=== PATIENT | male | born 1970 | race Caucasian/White ===

== ENCOUNTER 2020-06-27 14:06 | Outpatient (REF) | payer OTHER, SELFPAY ==
[2020-06-27 15:13] LABS: COVID-19 Test Negative (Negative)
== END 2020-06-27 14:07 | disposition home or self-care (01) ==
LOC: HO.LAB 14:06
PROVIDERS: Visit Provider Internal Medicine
DX: Z20.822 Contact with and (suspected) exposure to COVID-19 (principal)
CPT/HCPCS: 36415; 87635; C9803

== ENCOUNTER 2020-08-05 12:44 | Outpatient (REF) | payer OTHER, SELFPAY ==
[2020-08-05 13:22] LABS: Hematocrit 50.8 % (42-52); Hemoglobin 16.7 g/dl (14.0-18.0); Mean Corpuscular HGB Conc 32.9 g/dl (31.0-36.0); Mean Corpuscular Hemoglobin 29.2 pg (27.0-33.0); Mean Platelet Volume 10.4 fL (9.4-12.4); Platelet Count 257 X10*3/uL (160-400); Red Blood Count 5.71 X10*6/uL (4.60-5.80); Red Cell Distribution Width 11.7 % (11.0-16.0); White Blood Count 8.3 X10*3/uL (4.8-10.8)
[2020-08-05 13:56] LABS: Anion Gap 15 (12-20); Blood Urea Nitrogen 14 mg/dL (9-16); Calcium 9.7 mg/dL (8.4-10.2); Carbon Dioxide 25 mmol/L (22-29); Chloride 100 mmol/L (96-108); Cholesterol 211 mg/dL; Estimated Glomerular Filt Rate > 60; Glucose Fasting 288 mg/dL (60-99); HDL Cholesterol 43 mg/dL; Potassium 4.3 mmol/L (3.3-5.1); Sodium 136 mmol/L (135-145); Triglycerides 427 mg/dL
== END 2020-08-05 12:45 | disposition home or self-care (01) ==
LOC: HO.10HDL 12:44
PROVIDERS: Absent Provider Internal Medicine; Visit Provider Urology
DX: R79.89 Other specified abnormal findings of blood chemistry (principal)
CPT/HCPCS: 36415; 80048; 80061; 85027

== ENCOUNTER 2020-09-03 08:11 | Outpatient (REF) | payer OTHER, SELFPAY ==
[2020-09-03 10:54] LABS: Estimated Average Glucose 226 mg/dL; Hemoglobin A1c % 9.5 %
[2020-09-03 11:06] LABS: Alanine Aminotransferase 29 U/L (0-40); Alkaline Phosphatase 61 U/L (39-117); Aspartate Amino Transferase 24 U/L (5-37); Bilirubin Direct 0.3 mg/dL (0.0-0.5); Bilirubin Total 0.6 mg/dL (0.0-1.0); C Reactive Protein 0.29 mg/dL (< or = 0.50); Cholesterol 152 mg/dL; Glucose Fasting 101 mg/dL (60-99); HDL Cholesterol 42 mg/dL; LDL Cholesterol Calculated 86 mg/dl; Total Protein 6.8 g/dL (6.5-8.0); Triglycerides 123 mg/dL
[2020-09-03 12:04] LABS: Erythrocyte Sedimentation Rate 7 MM/HR (0-15)
[2020-09-04 06:42] LABS: Insulin Level Total 10.4 uIU/mL
== END 2020-09-03 08:12 | disposition home or self-care (01) ==
LOC: HO.10HDL 08:11
PROVIDERS: Visit Provider Urology
DX: E11.9 Type 2 diabetes mellitus without complications (principal)
CPT/HCPCS: 36415; 80061; 80076; 82947; 83036; 83525; 85652; 86140

== ENCOUNTER 2020-10-02 08:38 | Outpatient (REF) | payer OTHER, SELFPAY ==
[2020-10-02 10:46] LABS: Estimated Average Glucose 171 mg/dL; Hemoglobin A1c % 7.6 %
[2020-10-02 11:03] LABS: Alanine Aminotransferase 24 U/L (0-40); Albumin Level 4.2 g/dL (3.5-5.0); Alkaline Phosphatase 60 U/L (39-117); Anion Gap 13 (12-20); Aspartate Amino Transferase 19 U/L (5-37); Bilirubin Total 0.7 mg/dL (0.0-1.0); Blood Urea Nitrogen 14 mg/dL (9-16); Calcium 9.5 mg/dL (8.4-10.2); Carbon Dioxide 23 mmol/L (22-29); Chloride 107 mmol/L (96-108); Estimated Glomerular Filt Rate > 60; Glucose Fasting 112 mg/dL (60-99); Potassium 4.3 mmol/L (3.3-5.1); Sodium 139 mmol/L (135-145); Total Protein 7.2 g/dL (6.5-8.0)
[2020-10-02 11:09] LABS: Ferritin 289 ng/mL (20-250)
[2020-10-02 11:17] LABS: Vitamin B12 247 pg/mL (200-900)
[2020-10-02 13:31] LABS: Cholesterol 158 mg/dL; HDL Cholesterol 37 mg/dL; LDL Cholesterol Calculated 93 mg/dl; Triglycerides 143 mg/dL
[2020-10-04 05:56] LABS: Insulin Level Total 10.7 uIU/mL
[2020-10-07 12:52] LABS: Vitamin D 25-OH, D2 <4 ng/mL; Vitamin D 25-OH, D3 29 ng/mL; Vitamin D 25-OH, Total 29 ng/mL (30-100)
== END 2020-10-02 08:39 | disposition home or self-care (01) ==
LOC: HO.10HDL 08:38
PROVIDERS: Urology; Visit Provider Internal Medicine
DX: E11.9 Type 2 diabetes mellitus without complications (principal); R79.89 Other specified abnormal findings of blood chemistry
CPT/HCPCS: 36415; 80053; 80061; 82306; 82607; 82728; 83036; 83525

== ENCOUNTER 2020-10-05 18:54 | Outpatient (REF) | payer OTHER, SELFPAY ==
[2020-10-05 19:35] LABS: COVID-19 Test Negative (Negative); IDNOW Serial# 9DD0AD1C
== END 2020-10-05 18:55 | disposition home or self-care (01) ==
LOC: HO.LAB 18:54
PROVIDERS: Internal Medicine; PCP Internal Medicine; Visit Provider Internal Medicine
DX: Z20.822 Contact with and (suspected) exposure to COVID-19 (principal)
CPT/HCPCS: 36415; 87635

== ENCOUNTER 2020-11-06 07:53 | Outpatient (REF) | payer OTHER, SELFPAY ==
[2020-11-06 10:55] LABS: Alanine Aminotransferase 17 U/L (0-40); Albumin Level 4.2 g/dL (3.5-5.0); Alkaline Phosphatase 60 U/L (39-117); Anion Gap 13 (12-20); Aspartate Amino Transferase 16 U/L (5-37); Bilirubin Total 0.6 mg/dL (0.0-1.0); Blood Urea Nitrogen 18 mg/dL (9-16); Calcium 9.7 mg/dL (8.4-10.2); Carbon Dioxide 22 mmol/L (22-29); Chloride 107 mmol/L (96-108); Cholesterol 176 mg/dL; Estimated Glomerular Filt Rate > 60; Glucose Fasting 112 mg/dL (60-99); HDL Cholesterol 37 mg/dL; LDL Cholesterol Calculated 115 mg/dl; Potassium 4.4 mmol/L (3.3-5.1); Sodium 138 mmol/L (135-145); Triglycerides 123 mg/dL
[2020-11-06 11:18] LABS: Ferritin 270 ng/mL (20-250); Vitamin D 25-OH Total 38.1 ng/mL (>30)
[2020-11-06 11:38] LABS: Folate 11.3 ng/mL (> or = 4.0); Vitamin B12 354 pg/mL (200-900)
[2020-11-06 12:18] LABS: Estimated Average Glucose 128 mg/dL; Hemoglobin A1c % 6.1 %
[2020-11-07 09:12] LABS: Insulin Level Total 12.9 uIU/mL
[2020-11-07 15:56] LABS: C Peptide 3.43 ng/mL (0.80-3.85)
[2020-11-10 14:27] LABS: Glutamic acid decarboxylase Ab <5 IU/mL (<5)
== END 2020-11-06 07:54 | disposition home or self-care (01) ==
LOC: HO.10HDL 07:53
PROVIDERS: Urology; Visit Provider Internal Medicine
DX: E11.9 Type 2 diabetes mellitus without complications (principal); R79.89 Other specified abnormal findings of blood chemistry; E66.3 Overweight
CPT/HCPCS: 36415; 80053; 80061; 82306; 82607; 82728; 82746; 83036; 83525; 84681; 86341

== ENCOUNTER 2020-11-27 08:05 | Outpatient (REF) | payer OTHER, SELFPAY ==
[2020-11-27 10:09] LABS: Estimated Average Glucose 126 mg/dL
[2020-11-27 10:47] LABS: Alanine Aminotransferase 16 U/L (0-40); Albumin Level 4.1 g/dL (3.5-5.0); Alkaline Phosphatase 55 U/L (39-117); Aspartate Amino Transferase 16 U/L (5-37); Bilirubin Direct 0.2 mg/dL (0.0-0.5); Bilirubin Total 0.6 mg/dL (0.0-1.0); Cholesterol 187 mg/dL; Glucose Fasting 110 mg/dL (60-99); HDL Cholesterol 40 mg/dL; LDL Cholesterol Calculated 126 mg/dl; Total Protein 7.1 g/dL (6.5-8.0); Triglycerides 105 mg/dL
[2020-11-27 10:59] LABS: Ferritin 228 ng/mL (20-250)
[2020-11-29 14:46] LABS: C Peptide 2.76 ng/mL (0.80-3.85)
[2020-12-04 09:08] LABS: Insulin Level Total 9.9 uIU/mL
== END 2020-11-27 08:06 | disposition home or self-care (01) ==
LOC: HO.10HDL 08:05
PROVIDERS: Visit Provider Urology
DX: E11.9 Type 2 diabetes mellitus without complications (principal)
CPT/HCPCS: 36415; 80061; 80076; 82728; 82947; 83036; 83525; 84681

== ENCOUNTER 2020-12-26 08:33 | Outpatient (REF) | payer OTHER, SELFPAY ==
[2020-12-26 10:39] LABS: Cholesterol 170 mg/dL; Estimated Average Glucose 123 mg/dL; Glucose Fasting 106 mg/dL (60-99); HDL Cholesterol 36 mg/dL; Hemoglobin A1c % 5.9 %; LDL Cholesterol Calculated 109 mg/dl; Triglycerides 128 mg/dL
[2020-12-26 11:06] LABS: Ferritin 243 ng/mL (20-250)
[2020-12-28 08:11] LABS: C Peptide 2.63 ng/mL (0.80-3.85)
[2020-12-30 23:07] LABS: Beta-Hydroxybutyrate 0.16 mmol/L
== END 2020-12-26 08:34 | disposition home or self-care (01) ==
LOC: HO.10HDL 08:33
PROVIDERS: Visit Provider Urology
DX: E11.9 Type 2 diabetes mellitus without complications (principal)
CPT/HCPCS: 36415; 80061; 82010; 82728; 82947; 83036; 84681

== ENCOUNTER 2021-01-23 08:21 | Outpatient (REF) | payer OTHER, SELFPAY ==
[2021-01-23 10:25] LABS: Estimated Average Glucose 120 mg/dL; Hemoglobin A1C 148.9794 umol/L; Hemoglobin A1c % 5.8 %
[2021-01-23 10:45] LABS: Anion Gap 12 (12-20); Blood Urea Nitrogen 18 mg/dL (9-16); Calcium 8.8 mg/dL (8.4-10.2); Carbon Dioxide 26 mmol/L (22-29); Chloride 104 mmol/L (96-108); Cholesterol 180 mg/dL; Estimated Glomerular Filt Rate > 60; Glucose Fasting 103 mg/dL (60-99); HDL Cholesterol 40 mg/dL; LDL Cholesterol Calculated 113 mg/dl; Potassium 4.3 mmol/L (3.3-5.1); Sodium 138 mmol/L (135-145); Triglycerides 137 mg/dL
[2021-01-23 11:12] LABS: Insulin 12 uU/mL (2-29)
[2021-01-23 11:46] LABS: Ferritin 224 ng/mL (20-250)
== END 2021-01-23 08:22 | disposition home or self-care (01) ==
LOC: HO.10HDL 08:21
PROVIDERS: Visit Provider Urology
DX: E11.9 Type 2 diabetes mellitus without complications (principal)
CPT/HCPCS: 36415; 80048; 80061; 82728; 83036; 83525; 84681

== ENCOUNTER 2021-02-20 10:41 | Outpatient (REF) | payer OTHER, SELFPAY ==
[2021-02-20 14:09] LABS: Estimated Average Glucose 120 mg/dL; Hemoglobin A1c % 5.8 %
[2021-02-20 14:15] LABS: Cholesterol 186 mg/dL; Glucose Fasting 99 mg/dL (60-99); HDL Cholesterol 42 mg/dL; LDL Cholesterol Calculated 121 mg/dl; Triglycerides 117 mg/dL
[2021-02-20 14:37] LABS: Ferritin 235 ng/mL (20-250)
[2021-02-22 21:11] LABS: C Peptide 2.08 ng/mL (0.80-3.85)
== END 2021-02-20 10:42 | disposition home or self-care (01) ==
LOC: HO.10HDL 10:41
PROVIDERS: Visit Provider Urology
DX: E11.9 Type 2 diabetes mellitus without complications (principal)
CPT/HCPCS: 36415; 80061; 82728; 82947; 83036; 84681

== ENCOUNTER 2021-03-25 12:43 | Outpatient (REF) | payer OTHER, SELFPAY ==
[2021-03-25 14:13] LABS: Estimated Average Glucose 123 mg/dL; Hemoglobin A1c % 5.9 %
[2021-03-25 14:22] LABS: Alanine Aminotransferase 17 U/L (0-40); Albumin Level 4.1 g/dL (3.5-5.0); Alkaline Phosphatase 65 U/L (39-117); Anion Gap 12 (12-20); Aspartate Amino Transferase 18 U/L (5-37); Bilirubin Direct 0.3 mg/dL (0.0-0.5); Bilirubin Total 0.8 mg/dL (0.0-1.0); Blood Urea Nitrogen 17 mg/dL (9-16); Calcium 9.4 mg/dL (8.4-10.2); Carbon Dioxide 25 mmol/L (22-29); Chloride 106 mmol/L (96-108); Estimated Glomerular Filt Rate > 60; Glucose Fasting 95 mg/dL (60-99); Potassium 4.1 mmol/L (3.3-5.1); Sodium 139 mmol/L (135-145); Total Protein 7.4 g/dL (6.5-8.0)
[2021-03-25 14:45] LABS: Ferritin 230 ng/mL (20-250); Insulin 6 uU/mL (2-29)
[2021-03-26 23:41] LABS: C Peptide 1.69 ng/mL (0.80-3.85)
== END 2021-03-25 12:44 | disposition home or self-care (01) ==
LOC: HO.10HDL 12:43
PROVIDERS: Visit Provider Urology
DX: E11.9 Type 2 diabetes mellitus without complications (principal)
CPT/HCPCS: 36415; 80048; 80076; 82728; 83036; 83525; 84681

== ENCOUNTER 2021-04-24 07:59 | Outpatient (REF) | payer OTHER, SELFPAY ==
[2021-04-24 11:10] LABS: Anion Gap 11 (12-20); Blood Urea Nitrogen 21 mg/dL (9-16); Calcium 9.1 mg/dL (8.4-10.2); Carbon Dioxide 25 mmol/L (22-29); Chloride 105 mmol/L (96-108); Cholesterol 164 mg/dL; Estimated Glomerular Filt Rate > 60; Glucose Fasting 109 mg/dL (60-99); HDL Cholesterol 38 mg/dL; LDL Cholesterol Calculated 107 mg/dl; Lactate Dehydrogenase 130 U/L (118-273); Potassium 4.3 mmol/L (3.3-5.1); Sodium 137 mmol/L (135-145); Triglycerides 97 mg/dL
[2021-04-24 11:12] LABS: Estimated Average Glucose 123 mg/dL; Hemoglobin A1C 152.4863 umol/L; Hemoglobin A1c % 5.9 %
[2021-04-24 11:31] LABS: Ferritin 195 ng/mL (20-250); Insulin 10 uU/mL (2-29)
[2021-04-24 11:56] LABS: Reflex LDLD? No
[2021-04-26 02:36] LABS: C Peptide 2.42 ng/mL (0.80-3.85)
== END 2021-04-24 08:00 | disposition home or self-care (01) ==
LOC: HO.10HDL 07:59
PROVIDERS: Visit Provider Urology
DX: E11.9 Type 2 diabetes mellitus without complications (principal)
CPT/HCPCS: 36415; 80048; 80061; 82728; 82947; 83036; 83525; 83615; 84681

== ENCOUNTER 2021-05-20 11:21 | Outpatient (REF) | payer OTHER, SELFPAY ==
[2021-05-20 14:13] LABS: Estimated Average Glucose 120 mg/dL; Hemoglobin A1c % 5.8 %
[2021-05-20 14:30] LABS: Cholesterol 180 mg/dL; Glucose Fasting 110 mg/dL (60-99); HDL Cholesterol 40 mg/dL; LDL Cholesterol Calculated 114 mg/dl; Triglycerides 134 mg/dL
[2021-05-20 14:53] LABS: Ferritin 200 ng/mL (20-250)
[2021-05-20 18:21] LABS: Insulin 11 uU/mL (2-29)
== END 2021-05-20 11:22 | disposition home or self-care (01) ==
LOC: HO.10HDL 11:21
PROVIDERS: Visit Provider Urology
DX: E11.9 Type 2 diabetes mellitus without complications (principal)
CPT/HCPCS: 36415; 80061; 82728; 82947; 83036; 83525; 84681

== ENCOUNTER 2021-06-25 13:10 | Outpatient (REF) | payer OTHER, SELFPAY ==
[2021-06-25 14:25] LABS: Estimated Average Glucose 120 mg/dL; Hemoglobin A1c % 5.8 %
[2021-06-25 14:29] LABS: Cholesterol 206 mg/dL; Glucose Fasting 101 mg/dL (60-99); HDL Cholesterol 44 mg/dL
[2021-06-25 14:35] LABS: LDL Cholesterol Calculated 142 mg/dl; Triglycerides 101 mg/dL
[2021-06-25 14:50] LABS: Ferritin 214 ng/mL (20-250)
[2021-06-25 15:19] LABS: Insulin 12 uU/mL (2-29)
[2021-06-27 16:21] LABS: C Peptide 1.99 ng/mL (0.80-3.85)
== END 2021-06-25 13:11 | disposition home or self-care (01) ==
LOC: HO.LAB 13:10
PROVIDERS: PCP Internal Medicine; Visit Provider Urology
DX: E11.9 Type 2 diabetes mellitus without complications (principal)
CPT/HCPCS: 36415; 80061; 82728; 82947; 83036; 83525; 84681

== ENCOUNTER 2021-10-22 08:44 | Outpatient (REF) | payer OTHER, SELFPAY ==
[2021-10-22 11:11] LABS: Mean Corpuscular HGB Conc 33.3 g/dl (31.0-36.0); Mean Corpuscular Hemoglobin 29.8 pg (27.0-33.0); Mean Corpuscular Volume 89.3 fL (80.0-98.0); Platelet Count 229 X10*3/uL (160-400); Red Blood Count 5.04 X10*6/uL (4.60-5.80); Red Cell Distribution Width 12.3 % (11.0-16.0); White Blood Count 5.8 X10*3/uL (4.8-10.8)
[2021-10-22 11:18] LABS: Anion Gap 14 (12-20); Blood Urea Nitrogen 18 mg/dL (9-16); Calcium 9.2 mg/dL (8.4-10.2); Carbon Dioxide 24 mmol/L (22-29); Chloride 108 mmol/L (96-108); Cholesterol 172 mg/dL; Estimated Glomerular Filt Rate > 60; Glucose Fasting 102 mg/dL (60-99); HDL Cholesterol 43 mg/dL; LDL Cholesterol Calculated 102 mg/dl; Potassium 4.4 mmol/L (3.3-5.1); Sodium 142 mmol/L (135-145); Triglycerides 138 mg/dL
[2021-10-22 11:20] LABS: Estimated Average Glucose 120 mg/dL; Hemoglobin A1c % 5.8 %
[2021-10-22 11:43] LABS: Ferritin 225 ng/mL (20-250); Insulin 10 uU/mL (2-29)
[2021-10-25 11:37] LABS: C Peptide 2.61 ng/mL (0.80-3.85)
[2021-10-29 04:45] LABS: Beta-Hydroxybutyrate 0.13 mmol/L
== END 2021-10-22 08:45 | disposition home or self-care (01) ==
LOC: HO.10HDL 08:44
PROVIDERS: Visit Provider Urology
DX: E11.9 Type 2 diabetes mellitus without complications (principal)
CPT/HCPCS: 36415; 80048; 80061; 82010; 82728; 83036; 83525; 84681; 85027

== ENCOUNTER 2021-12-09 08:23 | Outpatient (REF) | payer OTHER, SELFPAY ==
[2021-12-09 10:46] LABS: Estimated Average Glucose 120 mg/dL; Hemoglobin A1c % 5.8 %
[2021-12-09 10:51] LABS: Anion Gap 14 (12-20); Blood Urea Nitrogen 18 mg/dL (9-16); Calcium 9.1 mg/dL (8.4-10.2); Carbon Dioxide 24 mmol/L (22-29); Chloride 104 mmol/L (96-108); Cholesterol 167 mg/dL; Estimated Glomerular Filt Rate > 60; Glucose Fasting 116 mg/dL (60-99); HDL Cholesterol 41 mg/dL; LDL Cholesterol Calculated 103 mg/dl; Potassium 4.4 mmol/L (3.3-5.1); Sodium 138 mmol/L (135-145); Triglycerides 119 mg/dL
[2021-12-09 11:13] LABS: Ferritin 231 ng/mL (20-250)
[2021-12-09 11:47] LABS: Insulin 15 uU/mL (2-29)
[2021-12-10 13:51] LABS: LDL Cholesterol Direct 109 mg/dL (<100)
[2021-12-10 16:02] LABS: C Peptide 2.93 ng/mL (0.80-3.85)
[2021-12-15 07:27] LABS: Apolipoprotein B 90 mg/dL (<90)
[2021-12-17 20:57] LABS: Testosterone, Free 56.9 pg/mL (35.0-155.0); Testosterone, Total 395 ng/dL (250-1100)
== END 2021-12-09 08:24 | disposition home or self-care (01) ==
LOC: HO.10HDL 08:23
PROVIDERS: Visit Provider Urology
DX: E11.9 Type 2 diabetes mellitus without complications (principal); E29.1 Testicular hypofunction
CPT/HCPCS: 36415; 80048; 80061; 82172; 82728; 83036; 83525; 83721; 84402; 84403; 84681

== ENCOUNTER 2022-05-13 12:54 | Outpatient (REF) | payer OTHER, SELFPAY ==
[2022-05-13 15:32] LABS: Estimated Average Glucose 126 mg/dL
[2022-05-13 15:48] LABS: Cholesterol 177 mg/dL; HDL Cholesterol 40 mg/dL; LDL Cholesterol Calculated 108 mg/dl; Triglycerides 146 mg/dL
[2022-05-13 16:08] LABS: Ferritin 219 ng/mL (20-250); Insulin 8 uU/mL (2-29)
[2022-05-14 23:13] LABS: C Peptide 2.18 ng/mL (0.80-3.85)
[2022-05-14 23:54] LABS: LDL Cholesterol Direct 112 mg/dL (<100)
[2022-05-18 16:39] LABS: Apolipoprotein B 95 mg/dL (<90)
== END 2022-05-13 12:55 | disposition home or self-care (01) ==
LOC: HO.10HDL 12:54
PROVIDERS: Visit Provider Urology
DX: E11.9 Type 2 diabetes mellitus without complications (principal)
CPT/HCPCS: 36415; 80061; 82172; 82728; 83036; 83525; 83721; 84681

== ENCOUNTER 2022-08-11 10:09 | Outpatient (REF) | payer OTHER, SELFPAY ==
[2022-08-11 11:01] LABS: MANUAL DIFF FLAG NO
[2022-08-11 11:09] LABS: Basophils Percent Auto 0.4 % (0-2); Eosinophils Absolute Auto 0.1 X10*3/uL (0.0-0.4); Hemoglobin 14.6 g/dl (14.0-18.0); Lymphocytes Absolute Auto 2.1 X10*3/uL (1.2-4.9); Lymphocytes Percent Auto 37.5 % (20-40); Mean Corpuscular HGB Conc 33.2 g/dl (31.0-36.0); Mean Corpuscular Hemoglobin 29.4 pg (27.0-33.0); Mean Corpuscular Volume 88.7 fL (80.0-98.0); Mean Platelet Volume 10.1 fL (9.4-12.4); Monocytes Absolute Auto 0.5 X10*3/uL (0.1-1.2); Monocytes Percent Auto 9.3 % (2-11); Neutrophils Absolute Auto 2.8 x10*3/uL (2.0-8.3); Neutrophils Percent Auto 50.8 % (45-73); Platelet Count 218 X10*3/uL (160-400); Red Blood Count 4.96 X10*6/uL (4.60-5.80); Red Cell Distribution Width 12.3 % (11.0-16.0); White Blood Count 5.6 X10*3/uL (4.8-10.8)
[2022-08-11 11:45] LABS: Alanine Aminotransferase 25 U/L (0-40); Albumin Level 4.4 g/dL (3.5-5.0); Alkaline Phosphatase 55 U/L (39-117); Anion Gap 11 (12-20); Aspartate Amino Transferase 21 U/L (5-37); Bilirubin Total 0.6 mg/dL (0.0-1.0); Blood Urea Nitrogen 17 mg/dL (9-16); Calcium 9.3 mg/dL (8.4-10.2); Carbon Dioxide 25 mmol/L (22-29); Chloride 109 mmol/L (96-108); Cholesterol 158 mg/dL; Estimated Glomerular Filt Rate > 60; Glucose Fasting 109 mg/dL (60-99); HDL Cholesterol 44 mg/dL; LDL Cholesterol Calculated 95 mg/dl; Potassium 4.3 mmol/L (3.3-5.1); Sodium 141 mmol/L (135-145); Total Protein 7.3 g/dL (6.5-8.0); Triglycerides 97 mg/dL
[2022-08-11 11:52] LABS: Estimated Average Glucose 114 mg/dL; Hemoglobin A1c % 5.6 %
[2022-08-11 12:15] LABS: Ferritin 163 ng/mL (20-250)
[2022-08-11 12:36] LABS: Insulin 9 uU/mL (2-29)
[2022-08-13 01:29] LABS: C Peptide 2.72 ng/mL (0.80-3.85)
[2022-08-14 06:24] LABS: CRP High Sensitivity 1.6 mg/L
[2022-08-16 05:24] LABS: Apolipoprotein B 80 mg/dL (<90)
== END 2022-08-11 10:10 | disposition home or self-care (01) ==
LOC: HO.10HDL 10:09
PROVIDERS: Urology; Visit Provider Internal Medicine
DX: Z00.00 Encounter for general adult medical examination without abnormal findings (principal); E11.9 Type 2 diabetes mellitus without complications; R79.89 Other specified abnormal findings of blood chemistry
CPT/HCPCS: 36415; 80053; 80061; 82172; 82728; 83036; 83525; 84681; 85025; 86141

== ENCOUNTER 2022-08-26 07:34 | Day surgery (SDC) | payer OTHER, SELFPAY ==
--- NOTE | 2022-08-25 10:16 | HO.ANESPROP2 ---
Documented by User: Esperanza Stevens NP 08/25/22 10:17 HPI - Anesthesia Eval Consult details Narrative: 52yo M for Colonoscopy PMFSH Active Problems Active Problems: All Active Problems (Updated 01/05/22 @ 10:06 by Derek Grace MD) Nocturia associated with benign prostatic hyperplasia (Acute) Male pattern baldness (Acute) Encounter for screening colonoscopy (Acute) Overweight (Acute) DM type 2 (diabetes mellitus, type 2) (Acute) Annual physical exam (Acute) Elevated LFTs (Acute) Past Medical History Medical History ADHD Annual physical exam DM type 2 (diabetes mellitus, type 2) Overweight Family History Family History Mother Breast CA Sister Melanoma Maternal Grandmother Mental health disorder Surgical History Surgical History S/P appendectomy Social History Social History Housing: House Alcohol intake: current Alcohol intake frequency: a few times a month Patient Tobacco Use Status: Never used Tobacco e-Cigarette/Vaping Use: Never Used Second Hand Smoke Exposure: No Use of substances other than those prescribed or required for medical reasons: No Are you DNR?: No Advance Directives: No Advance Directives Information Provided: Yes Recently lost weight without trying: No Nutrition Risks: No Nutritional Risk Current occupational status: employed Current occupation: MD Cognitive needs: No Hearing needs: No Vision needs: Yes Meds Allergies Allergy/AdvReac Type Severity Reaction Status Date / Time No Known Allergies Allergy Verified 03/05/22 08:58 Home Medications Medication Instructions Recorded Confirmed Last Taken Type methylphenidate HCl 36 mg 36 mg PO DAILY 08/06/20 10/13/21 Unknown History tablet,extended release 24 hr Exam Exam Date and Time: August 25, 2022 1016 Pertinent Lab Results Pertinent Lab Results: Laboratory Tests 08/11/22 08/11/22 10:11 10:11 WBC 5.6 Hgb 14.6 Hct 44.0 Plt Count 218 Sodium 141 Potassium 4.3 Chloride 109 H Carbon Dioxide 25 BUN 17 H Creatinine 1.10 Assessment and Plan Assessment Anesthesia Assessment: Chart Reviewed Documented by User: Alberto Blount MD 08/26/22 08:02 PMFSH Past Medical History Medical History ADHD Annual physical exam DM type 2 (diabetes mellitus, type 2) Overweight Family History Family History Mother Breast CA Sister Melanoma Maternal Grandmother Mental health disorder Family history of problems with anesthesia: No Surgical History Surgical History S/P appendectomy History of Problems with Anesthesia: No Social History Social History Housing: House Alcohol intake: current Alcohol intake frequency: a few times a month Patient Tobacco Use Status: Never used Tobacco e-Cigarette/Vaping Use: Never Used Second Hand Smoke Exposure: No Use of substances other than those prescribed or required for medical reasons: No Are you DNR?: No Advance Directives: No Advance Directives Information Provided: Yes Recently lost weight without trying: No Nutrition Risks: No Nutritional Risk Current occupational status: employed Current occupation: Cognitive needs: No Hearing needs: No Vision needs: Yes Meds Allergies Allergy/AdvReac Type Severity Reaction Status Date / Time No Known Allergies Allergy Verified 03/05/22 08:58 Home Medications Medication Instructions Recorded Confirmed Last Taken Type methylphenidate HCl 36 mg 36 mg PO DAILY 08/06/20 10/13/21 Unknown History tablet,extended release 24 hr Exam Airway Mallampati Class: III TM Dist: >3cm Neck ROM: Full Loose/Missing/Broken Teeth: No Heart: rrr+[id number] Lungs: cta b/l Assessment and Plan Assessment Anesthesia Assessment: Anesthesia Plan Discussed Final Anesthetic Review Family History of Problems with Anesthesia: No History of Problems with Anesthesia: No NPO: Yes ASA Class: II Final Preanesthetic Review: No Changes in Pt Med Stat, Meds/Allgs Chart Reviewed, Consent Obtained/Reviewed and Anes Risks/Benef Reviewed Patient Risk: Intermediate Procedure Risk: Low Assessment/Block/Sedation in SS: Assess/Block/Sedation-SS Anesthetic Plan Anesthetic Plan: MAC: and Agree w/ Assess. and Plan Disposition: Standard PACU
[2022-08-26] VITALS (8 sets, daily range): BP systolic 84–136; BP diastolic 48–78; PULSE 59–83; RESP 16; TEMP 36.2–36.6; O2SAT 95–98; BMI 29.0
[2022-08-26] MEDS: Lactated Ringers 1,000 ML 100 ML IVCONT (07:53)
--- NOTE | 2022-08-26 07:56 | MHC.SHP ---
Pre-Procedural Eval Section A Date of Service: 08/26/22 Section B Chief Complaint: Encounter for screening for malignant neoplasm Details of Present Illness: PMH: ADHD DM type 2 (diabetes mellitus, type 2) Overweight Surgical History S/P appendectomy Family History Mother Breast CA Sister Melanoma Maternal Grandmother Mental health disorder Present Medications: see Short Stay Collaborative assessment Allergies: Allergies Allergy/AdvReac Type Severity Reaction Status Date / Time No Known Allergies Allergy Verified 03/05/22 08:58 Review of Systems Review of Systems Comment: 10 point ROS negative Exam Exam Comment: Gen appear: No acute distress HEENT: no icterus Chest: No overt resp distress Abd: soft, nontender, nondistended Psych: Stable affect, answering questions appropriately Neuro: A/Ox3 noted to move all extremities spontaneously Ext: no peripheral edema Plan Diagnosis/Plan: Unchanged I have reviewed the history and physical and performed a pertinent physical examination on my patient. No changes have occurred unless specified. Time Spent With Patient Time: Total time managing care of this patient today ____ minutes.
--- NOTE | 2022-08-26 08:00 | P.OP_ITS ---
Operative Note Operative Note Date of Service: 08/26/22 Narrative: Procedure: Colonoscopy Indication: Screening Endoscopist: Swetha Coleman MD Anesthesia Provider: Maya Hanley CRNA Anesthesia type: MAC Instrument: Olympus [id number]-[id number] Consent: Indication, risks vs benefits, and alternatives were discussed with the patient who gave written informed consent to proceed. EKG, pulse, pulse oximetry and blood pressure were monitored throughout the procedure. Please see anesthesia flowsheet. Procedure: The patient was brought to the procedure room and placed in the left lateral decubitus position. IV medications were administered by the anesthesia provider in attendance. A digital rectal exam was performed which was normal. A distal attachment cap was affixed to the tip of the scope and the colonoscope was then inserted through the anus and advanced through the colon to the cecum at 75 cm,and terminal ileum. Mucosa was carefully examined under high definition white light as the instrument was slowly withdrawn in a retrograde panoramic fashion. Retroflexion was performed in ascending colon and rectum. The procedure was not difficult. There were no immediate obvious complications. The quality of the prep was BBPS: 2+2+2 = adequate Withdrawal time 16 minutes. Limitations: No limitations. Findings: Mucosa: Normal to cecum and terminal ileum. Protruding lesions: * Medium internal hemorrhoids without stigmata of recent bleeding. Impression: 1. Normal colon and terminal ileum mucosa 2. Internal hemorrhoids 3. Fair prep Recommendations: - Repeat colonoscopy in 5-7 years due to quality of prep.
== END 2022-08-26 10:58 | disposition home or self-care (01) ==
PROVIDERS: PCP Internal Medicine; Visit Provider Internal Medicine
PROC: 0DJD8ZZ Inspection of Lower Intestinal Tract, Via Natural or Artificial Opening Endoscopic (ICD-10-PCS; CPT 45378; principal; 2022-08-26 08:10)
DX: Z12.11 Encounter for screening for malignant neoplasm of colon (principal); K64.8 Other hemorrhoids; E11.9 Type 2 diabetes mellitus without complications; E66.3 Overweight; F90.9 Attention-deficit hyperactivity disorder, unspecified type; Z79.899 Other long term (current) drug therapy
CPT/HCPCS: 45378

== ENCOUNTER 2022-10-06 08:31 | Outpatient (REF) | payer OTHER, SELFPAY ==
[2022-10-06 09:06] LABS: Estimated Average Glucose 114 mg/dL; Hemoglobin A1c % 5.6 %
[2022-10-06 09:28] LABS: Cholesterol 152 mg/dL; HDL Cholesterol 40 mg/dL; LDL Cholesterol Calculated 85 mg/dl; Triglycerides 138 mg/dL
[2022-10-06 09:42] LABS: Cortisol Random 7.1 ug/dL; Ferritin 188 ng/mL (20-250); Insulin 17 uU/mL (2-29)
[2022-10-08 01:08] LABS: C Peptide 3.17 ng/mL (0.80-3.85)
[2022-10-09 15:53] LABS: CRP High Sensitivity 1.6 mg/L
[2022-10-09 20:58] LABS: Apolipoprotein B 81 mg/dL (<90)
== END 2022-10-06 08:32 | disposition home or self-care (01) ==
LOC: HO.10HDL 08:31
PROVIDERS: Visit Provider Urology
DX: E11.9 Type 2 diabetes mellitus without complications (principal)
CPT/HCPCS: 36415; 80061; 82172; 82533; 82728; 83036; 83525; 84681; 86141

== ENCOUNTER 2022-10-07 07:27 | Outpatient (AMB) | payer OTHER, SELFPAY ==
--- NOTE | 2022-10-07 07:26 | A.OFFPC_ITS ---
Vital Signs 10/07/22 07:37 Height 6 ft 5 in Weight 247 lb BMI 29.3 BP 102/70 Blood Pressure Location Lt brachial Position Sitting Pulse 84 Pulse Source Pulse Oximeter Pulse Oximetry (%) 96 Oxygen Delivery Method Room Air Intake Visit Reasons: Annual PE Intake Note: Pt is here today for his PE Allergies No Known Allergies Allergy (Verified 10/07/22 07:32) Tobacco use date assessed: 10/07/22 Dental Screening Dental Screen Date: 10/07/22 HPI Annual PE HPI Details Pt presents for PE PFSH Medical History (Updated 10/07/22 @ 17:19 by Kristie Valdivia MD) ADHD Annual physical exam DM type 2 (diabetes mellitus, type 2) Surgical History S/P appendectomy Family History Mother Breast CA Sister Melanoma Maternal Grandmother Mental health disorder Social History Housing: House Alcohol intake: current Alcohol intake frequency: a few times a month Patient Tobacco Use Status: Never used Tobacco e-Cigarette/Vaping Use: Never Used Second Hand Smoke Exposure: No Current occupational status: employed Current occupation: Cognitive needs: No Hearing needs: No Vision needs: Yes Questionnaire Thrive Questionnaire Date Thrive assessed: 10/07/22 I am a: Patient What is your living situation today?: I have a steady place to live Within the past 12 months, did the food you bought not last and you didn't have the money to get more?: Never true Within the past 12 months, did you worry whether your food would run out before you got money to buy more?: Never true Do you have trouble paying for medicines?: No Do you have trouble getting transportation to medical appointments?: No Do you have trouble paying your heating and electricity bill?: No Do you have trouble taking care of your child, family member or friend?: No Do you have trouble with day-to-day activities such as bathing, preparing meals, shopping, managing finances, etc.?: No Are you currently unemployed and looking for a job?: No Are you interested in more education?: No CANDELARIO-7 AMB Questionnaire CANDELARIO-7 Date CANDELARIO - 7 assessed: 10/07/22 Feeling nervous, anxious, or on edge: 0 = Not at all Not being able to stop or control worryin = Not at all Worrying too much about different things: 0 = Not at all Trouble relaxin = Several days Being so restless that it is hard to sit still: 0 = Not at all Becoming easily annoyed or irritable: 0 = Not at all Feeling afraid as if something awful might happen: 0 = Not at all Total CANDELARIO-7 score (0-4 normal; 5-9 mild; 10-14 moderate; 15-21 severe): 1 Source: Developed by Drs. Kennedy Preciado, Missy Shetty, Kal Meng and colleagues, with an educational tosin from [employer]. Review of Systems Const All systems reviewed & are unremarkable except as noted in HPI and below Reports no additional complaints Eyes Reports no additional complaints ENT Reports no additional complaints Card Reports no additional complaints Resp Reports no additional complaints GI Reports no additional complaints Reports no additional complaints Endo Reports no additional complaints Physical exam (Primary Care) Vital Signs: Last Vital Signs Pulse 84 10/07/22 07:37 BP 102/70 10/07/22 07:37 Pulse Ox 96 10/07/22 07:37 Oxygen Delivery Method Room Air 10/07/22 07:37 BMI result Body Mass Index 29.3 Tobacco/Smoking Status: Tobacco use Status Tobacco use date assessed 10/07/22 10/07/22 07:44 Patient Tobacco Use Status Never used Tobacco 10/07/22 07:26 e-Cigarette/Vaping Use Never Used 10/07/22 07:26 Thrive Assessment: Date of Thrive Assessment Date Thrive assessed 10/07/22 10/07/22 07:44 Const General: no acute distress HENMT Head: Yes normal to inspection Ears: hearing grossly normal bilaterally Face and sinus: Yes normal facial exam Mouth: Normal oral and palatal mucosa present Throat: Yes posterior oropharynx normal Eyes General: appearance normal, both eyes and all related structures Neck Neck: Yes no lymphadenopathy and Yes supple Resp Effort & Inspection: normal respiratory effort Auscultation: clear to auscultation bilaterally Cardio Rhythm: regular rhythm Heart sounds: S1 normal heart sound present and S2 normal heart sound present GI Inspection: Yes normal to inspection Palpation (GI): Soft to palpation Percussion: Yes normal to percussion Auscultation: normal bowel sounds Assessment and Plan Assessment & Plan (1) Hx of colonoscopy: Comment: 08/2022 negative, fair prep recheck 5-7 yrs Code(s): Z98.890 - Other specified postprocedural states (2) DM type 2 (diabetes mellitus, type 2): Comment: diet controlled, A1C 5.6 10/27 Code(s): E11.9 - Type 2 diabetes mellitus without complications (3) Annual physical exam: Code(s): Z00.00 - Encounter for general adult medical examination without abnormal findings (4) Nocturia associated with benign prostatic hyperplasia: Code(s): N40.1 - Benign prostatic hyperplasia with lower urinary tract symptoms; R35.1 - Nocturia Plan: cont Tadalafil Coding Level of Care Code Est Pt Prev Care 40-64y(70604) Diagnoses Hx of colonoscopy Z98.890 DM type 2 (diabetes mellitus, type 2) E11.9 Annual physical exam Z00.00 Nocturia associated with benign prostatic hyperplasia N40.1; R35.1
[2022-10-07 07:37] VITALS: BP 102/70; PULSE 84; O2SAT 96; BMI 29.3
== END 2022-10-07 12:55 | disposition home or self-care (01) ==
PROVIDERS: Visit Provider Internal Medicine
DX: Z98.890 Other specified postprocedural states (principal); E11.9 Type 2 diabetes mellitus without complications; Z00.00 Encounter for general adult medical examination without abnormal findings; N40.1 Benign prostatic hyperplasia with lower urinary tract symptoms; R35.1 Nocturia
CPT/HCPCS: 99396

== ENCOUNTER 2023-04-14 12:29 | Outpatient (REF) | payer OTHER, SELFPAY ==
[2023-04-14 13:46] LABS: Estimated Average Glucose 120 mg/dL; Hemoglobin A1c % 5.8 % (<6.0)
[2023-04-14 13:50] LABS: Glucose Fasting 102 mg/dL (60-99)
[2023-04-14 14:17] LABS: Ferritin 199 ng/mL (20-250)
[2023-04-14 14:32] LABS: Insulin 9 uU/mL (2-29)
== END 2023-04-14 12:30 | disposition home or self-care (01) ==
LOC: HO.LAB 12:29
PROVIDERS: Visit Provider Urology
DX: E11.9 Type 2 diabetes mellitus without complications (principal)
CPT/HCPCS: 36415; 82728; 82947; 83036; 83525

== ENCOUNTER 2023-04-15 07:39 | Outpatient (AMB) | payer OTHER, SELFPAY ==
[2023-04-15 07:41] VITALS: BP 106/70; PULSE 81; O2SAT 96; BMI 30.7
--- NOTE | 2023-04-15 07:41 | A.OFFPC_ITS ---
Vital Signs 04/15/23 07:41 Height 6 ft 5 in Weight 259 lb BMI 30.7 BP 106/70 Blood Pressure Location Lt brachial Position Sitting Pulse 81 Pulse Source Pulse Oximeter Pulse Oximetry (%) 96 Oxygen Delivery Method Room Air Intake Visit Reasons: 6m follow up Intake Note: Pt is here today for his 6 months f/u Allergies No Known Allergies Allergy (Verified 04/15/23 07:41) Medication List - Last Reconciled 04/15/23 by Kristie Valdivia MD celecoxib 100 mg PO DAILY 90 days ezetimibe (Zetia) 10 mg PO DAILY 90 days flash glucose sensor (FreeStyle Nikki 14 Day Sensor kit) As directed FreeStyle Nikki 3 Sensor (blood-glucose sensor) As directed NS lamotrigine 25 mg PO DAILY minoxidil 5 mg (2 x 2.5 mg) PO DAILY 90 days tadalafil 10 mg PO DAILY 90 days Tobacco use date assessed: 04/15/23 Dental Screening Dental Screen Date: 04/15/23 Did you have a dental visit in the last 12 months?: No Was dental information given to patient?: Patient has dentist HPI 6m follow up HPI Details Patient presents for the follow-up diet-controlled diabetes, hyperlipidemia, ADHD. [facility] Medical History DM type 2 (diabetes mellitus, type 2) Annual physical exam ADHD Surgical History S/P appendectomy Family History Mother Breast CA Sister Melanoma Maternal Grandmother Mental health disorder Social History Housing: House Alcohol intake: current Alcohol intake frequency: a few times a month Patient Tobacco Use Status: Never used Tobacco e-Cigarette/Vaping Use: Never Used Second Hand Smoke Exposure: No Current occupational status: employed Current occupation: Cognitive needs: No Hearing needs: No Vision needs: Yes Questionnaire PHQ-9 Over the last 2 weeks, how often have you been bothered by any of the following problems? 1. Little interest or pleasure in doing things: not at all 2. Feeling down, depressed, or hopeless: not at all 3. Trouble falling or staying asleep, or sleeping too much: not at all 4. Feeling tired or having little energy: not at all 5. Poor appetite or overeating: not at all 6. Feeling bad about yourself - or that you are a failure or have let yourself or your family down: not at all 7. Trouble concentrating on things, such as reading the newspaper or watching television: not at all 8. Moving or speaking so slowly that other people could have noticed. Or the opposite - being so fidgety or restless that you have been moving around a lot more than usual: not at all 9. Thoughts that you would be better off or of hurting yourself in some way: not at all Total score: 0 Depression Screening Interpretation: Negative Depression Screening Done: Yes Source: Developed by Drs. Kennedy Preciado, Missy Shetty, Kal Meng and colleagues, with an educational tosin from [employer]. Thrive Questionnaire Date Thrive assessed: 04/15/23 I am a: Patient What is your living situation today?: I have a steady place to live Within the past 12 months, did the food you bought not last and you didn't have the money to get more?: Never true Within the past 12 months, did you worry whether your food would run out before you got money to buy more?: Never true Do you have trouble paying for medicines?: No Do you have trouble getting transportation to medical appointments?: No Do you have trouble paying your heating and electricity bill?: No Do you have trouble taking care of your child, family member or friend?: No Are you currently unemployed and looking for a job?: No Are you interested in more education?: No THRIVE Score: 0 AUDIT C Alcohol Use Questionnaire (AUDIT-C) 1. How often do you have a drink containing alcohol?: Never Total Score: 0 CANDELARIO-7 AMB Questionnaire CANDLEARIO-7 Date CANDELARIO - 7 assessed: 04/15/23 Feeling nervous, anxious, or on edge: 0 = Not at all Not being able to stop or control worryin = Not at all Worrying too much about different things: 0 = Not at all Trouble relaxin = Not at all Being so restless that it is hard to sit still: 0 = Not at all Becoming easily annoyed or irritable: 0 = Not at all Feeling afraid as if something awful might happen: 0 = Not at all Total CANDELARIO-7 score (0-4 normal; 5-9 mild; 10-14 moderate; 15-21 severe): 0 Source: Developed by Drs. Kennedy Preciado, Missy Shetty, Kal Meng and colleagues, with an educational tosin from [employer]. Review of Systems Const All systems reviewed & are unremarkable except as noted in HPI and below Reports no additional complaints Eyes Reports no additional complaints ENT Reports no additional complaints Card Reports no additional complaints Resp Reports no additional complaints GI Reports no additional complaints Reports no additional complaints Physical exam (Primary Care) Vital Signs: Last Vital Signs Pulse 81 04/15/23 07:41 BP 106/70 04/15/23 07:41 Pulse Ox 96 04/15/23 07:41 Oxygen Delivery Method Room Air 04/15/23 07:41 BMI result Body Mass Index 30.7 Tobacco/Smoking Status: Tobacco use Status Tobacco use date assessed 04/15/23 04/15/23 07:46 Patient Tobacco Use Status Never used Tobacco 04/15/23 07:46 e-Cigarette/Vaping Use Never Used 04/15/23 07:46 PHQ-9: PHQ-9 Score PHQ-9: Total score 0 04/15/23 07:56 Depression Screening Interpretation: Negative Thrive Assessment: Date of Thrive Assessment Date Thrive assessed 04/15/23 04/15/23 07:56 Const General: no acute distress HENMT Head: Yes normal to inspection Ears: hearing grossly normal bilaterally Face and sinus: Yes normal facial exam Eyes General: appearance normal, both eyes and all related structures Neck Neck: Yes supple Resp Effort & Inspection: normal respiratory effort Auscultation: clear to auscultation bilaterally Cardio Rhythm: regular rhythm Heart sounds: S1 normal heart sound present and S2 normal heart sound present Extrem Other: Diabetic foot exam skin intact , monofilament sensation intact bilaterally General: Yes no clubbing, cyanosis or edema Assessment and Plan Assessment & Plan (1) Nocturia associated with benign prostatic hyperplasia: Code(s): N40.1 - Benign prostatic hyperplasia with lower urinary tract symptoms; R35.1 - Nocturia Plan: Continue tadalafil (2) DM type 2 (diabetes mellitus, type 2): Comment: diet controlled, A1C 5.6 10/27 Code(s): E11.9 - Type 2 diabetes mellitus without complications Plan: A1c is 5.8, ADA diet regular physical activity weight loss discussed with the patient follow-up in 6 months with a fasting labs before (3) Annual physical exam: Code(s): Z00.00 - Encounter for general adult medical examination without abnormal findings (4) Hx of colonoscopy: Comment: 08/2022 negative, fair prep recheck 5-7 yrs Code(s): Z98.890 - Other specified postprocedural states Orders: Orders C Peptide 6 Months E11.9 - Type 2 diabetes mellitus without complications, N40.1 - Benign prostatic hyperplasia with lower urinary tract symptoms, R35.1 - Nocturia, Z00.00 - Encounter for general adult medical examination without abnormal findings CRP High Sensitivity 6 Months E11.9 - Type 2 diabetes mellitus without complications, N40.1 - Benign prostatic hyperplasia with lower urinary tract symptoms, R35.1 - Nocturia, Z00.00 - Encounter for general adult medical examination without abnormal findings Comprehensive [place]. Panel Fast 6 Months E11.9 - Type 2 diabetes mellitus without complications, N40.1 - Benign prostatic hyperplasia with lower urinary tract symptoms, R35.1 - Nocturia, Z00.00 - Encounter for general adult medical examination without abnormal findings Microalbumin, Random (w Creat) 6 Months E11.9 - Type 2 diabetes mellitus without complications, N40.1 - Benign prostatic hyperplasia with lower urinary tract s ymptoms, R35.1 - Nocturia, Z00.00 - Encounter for general adult medical examination without abnormal findings UA w Microscopic 6 Months E11.9 - Type 2 diabetes mellitus without complications, N40.1 - Benign prostatic hyperplasia with lower urinary tract symptoms, R35.1 - Nocturia, Z00.00 - Encounter for general adult medical examination without abnormal findings Apolipoprotein B 6 Months E11.9 - Type 2 diabetes mellitus without complications, N40.1 - Benign prostatic hyperplasia with lower urinary tract symptoms, R35.1 - Nocturia, Z00.00 - Encounter for general adult medical examination without abnormal findings Hemoglobin A1c 6 Months E11.9 - Type 2 diabetes mellitus without complications, N40.1 - Benign prostatic hyperplasia with lower urinary tract symptoms, R35.1 - Nocturia, Z00.00 - Encounter for general adult medical examination without abnormal findings Insulin 6 Months E11.9 - Type 2 diabetes mellitus without complications, N40.1 - Benign prostatic hyperplasia with lower urinary tract symptoms, R35.1 - Nocturia, Z00.00 - Encounter for general adult medical examination without abnormal findings Lipid Panel 6 Months E11.9 - Type 2 diabetes mellitus without complications, N40.1 - Benign prostatic hyperplasia with lower urinary tract symptoms, R35.1 - Nocturia, Z00.00 - Encounter for general adult medical examination without abnormal findings Testosterone, Free/Total 6 Months E11.9 - Type 2 diabetes mellitus without complications, N40.1 - Benign prostatic hyperplasia with lower urinary tract symptoms, R35.1 - Nocturia, Z00.00 - Encounter for general adult medical examination without abnormal findings Complete Blood Count Auto Diff 6 Months E11.9 - Type 2 diabetes mellitus without complications, N40.1 - Benign prostatic hyperplasia with lower urinary tract symptoms, R35.1 - Nocturia, Z00.00 - Encounter for general adult medical examination without abnormal findings Coding Level of Care Code Est Pt Level 3 (98028) Diagnoses Nocturia associated with benign prostatic hyperplasia N40.1; R35.1 DM type 2 (diabetes mellitus, type 2) E11.9 Annual physical exam Z00.00 Hx of colonoscopy Z98.890
== END 2023-04-15 08:39 | disposition home or self-care (01) ==
PROVIDERS: PCP Internal Medicine; Visit Provider Internal Medicine
DX: N40.1 Benign prostatic hyperplasia with lower urinary tract symptoms (principal); R35.1 Nocturia; E11.9 Type 2 diabetes mellitus without complications; Z00.00 Encounter for general adult medical examination without abnormal findings; Z98.890 Other specified postprocedural states
CPT/HCPCS: 99213

== ENCOUNTER 2023-08-09 08:18 | Outpatient (REF) | payer OTHER, SELFPAY ==
[2023-08-09 11:32] LABS: Albumin Level 4.1 g/dL (3.5-5.0)
[2023-08-10 21:59] LABS: Lutenizing Hormone 5.5 mIU/mL (1.5-9.3); Sex Hormone Binding Globulin 29 nmol/L (10-50)
[2023-08-15 06:48] LABS: Estradiol Ultra Sensitive 17 pg/mL (< OR = 29)
[2023-08-25 08:40] LABS: Testosterone, Total 349 ng/dL (250-1100)
== END 2023-08-09 08:19 | disposition home or self-care (01) ==
LOC: HO.10HDL 08:18
PROVIDERS: Visit Provider Urology
DX: E11.9 Type 2 diabetes mellitus without complications (principal); E29.1 Testicular hypofunction
CPT/HCPCS: 36415; 82040; 82670; 83002; 84270; 84403

== ENCOUNTER 2023-11-08 08:41 | Outpatient (REF) | payer OTHER, SELFPAY ==
[2023-11-08 11:08] LABS: MANUAL DIFF FLAG NO
[2023-11-08 11:24] LABS: Alanine Aminotransferase 29 U/L (0-40); Albumin Level 4.2 g/dL (3.5-5.0); Alkaline Phosphatase 51 U/L (39-117); Anion Gap 14 (12-20); Aspartate Amino Transferase 23 U/L (5-37); Bilirubin Total 0.4 mg/dL (0.0-1.0); Blood Urea Nitrogen 18 mg/dL (9-16); Calcium 9.3 mg/dL (8.4-10.2); Carbon Dioxide 20 mmol/L (22-29); Chloride 108 mmol/L (96-108); Cholesterol 132 mg/dL (<200); Estimated Glomerular Filt Rate > 60; Glucose Fasting 124 mg/dL (60-99); HDL Cholesterol 35 mg/dL (>40); LDL Cholesterol Calculated 69 mg/dL (<100); Potassium 4.3 mmol/L (3.3-5.1); Sodium 138 mmol/L (135-145); Total Protein 7.6 g/dL (6.5-8.0); Triglycerides 141 mg/dL (<150)
[2023-11-08 11:26] LABS: Basophils Absolute Auto 0.1 X10*3/uL (0.0-0.2); Basophils Percent Auto 0.8 % (0-2); Eosinophils Absolute Auto 0.2 X10*3/uL (0.0-0.4); Eosinophils Percent Auto 3.2 % (0-4); Hematocrit 45.7 % (42.0-52.0); Hemoglobin 15.5 g/dl (14.0-18.0); Imm Gran Abs Auto 0.01 X10*3/uL (0.00-0.03); Imm Gran Pct Auto 0.2 % (0.0-0.4); Lymphocytes Absolute Auto 1.6 X10*3/uL (1.2-4.9); Lymphocytes Percent Auto 26.6 % (20-40); Mean Corpuscular HGB Conc 33.9 g/dl (31.0-36.0); Mean Corpuscular Hemoglobin 30.1 pg (27.0-33.0); Mean Corpuscular Volume 88.7 fL (80.0-98.0); Mean Platelet Volume 9.5 fL (9.4-12.4); Monocytes Absolute Auto 0.6 X10*3/uL (0.1-1.2); Monocytes Percent Auto 10.8 % (2-11); Neutrophils Absolute Auto 3.4 x10*3/uL (2.0-8.3); Neutrophils Percent Auto 58.4 % (45-73); Platelet Count 225 X10*3/uL (160-400); Red Blood Count 5.15 X10*6/uL (4.60-5.80); Red Cell Distribution Width 12.3 % (11.0-16.0); White Blood Count 5.9 X10*3/uL (4.8-10.8)
[2023-11-08 11:35] LABS: Estimated Average Glucose 126 mg/dL
[2023-11-08 11:40] LABS: Ferritin 240 ng/mL (20-250)
[2023-11-08 11:41] LABS: Insulin 11 uU/mL (2-29)
[2023-11-09 08:48] LABS: CRP High Sensitivity 3.4 mg/L
[2023-11-09 09:08] LABS: C Peptide 2.34 ng/mL (0.80-3.85); Lutenizing Hormone 21.3 mIU/mL (1.5-9.3)
[2023-11-12 21:28] LABS: Testosterone, Free 210.1 pg/mL (35.0-155.0); Testosterone, Total 1148 ng/dL (250-1100)
[2023-11-16 17:09] LABS: Apolipoprotein B 77 mg/dL (<90)
== END 2023-11-08 08:42 | disposition home or self-care (01) ==
LOC: HO.10HDL 08:41
PROVIDERS: Urology; Visit Provider Internal Medicine
DX: Z00.00 Encounter for general adult medical examination without abnormal findings (principal); N40.1 Benign prostatic hyperplasia with lower urinary tract symptoms; R35.1 Nocturia; E11.69 Type 2 diabetes mellitus with other specified complication; N52.1 Erectile dysfunction due to diseases classified elsewhere
CPT/HCPCS: 36415; 80053; 80061; 82172; 82728; 83002; 83036; 83525; 84402; 84403; 84681; 85025; 86141

== ENCOUNTER 2023-12-29 09:38 | Outpatient (REF) | payer OTHER, SELFPAY ==
[2023-12-29 11:44] LABS: Glucose Fasting 89 mg/dL (60-99); Insulin 7 uU/mL (2-29)
[2023-12-30 07:54] LABS: C Peptide 2.41 ng/mL (0.80-3.85)
[2023-12-30 21:13] LABS: CRP High Sensitivity 1.1 mg/L
[2024-01-02 13:27] LABS: Testosterone, Total 1039 ng/dL (250-1100)
[2024-01-02 21:29] LABS: Apolipoprotein B 69 mg/dL (<90)
== END 2023-12-29 09:39 | disposition home or self-care (01) ==
LOC: HO.10HDL 09:38
PROVIDERS: Visit Provider Urology
DX: E11.9 Type 2 diabetes mellitus without complications (principal)
CPT/HCPCS: 36415; 82172; 82947; 83002; 83525; 84403; 84681; 86141

== ENCOUNTER 2024-10-10 08:35 | Outpatient (REF) | payer OTHER, SELFPAY ==
[2024-10-10 11:36] LABS: Hemoglobin A1C 157.3160 umol/L; Total Hemoglobin (HGBA1C) 4005.6821 umol/L
[2024-10-10 12:04] LABS: Anion Gap 9 (12-20); Blood Urea Nitrogen 14 mg/dL (9-16); Calcium 8.8 mg/dL (8.4-10.2); Carbon Dioxide 24 mmol/L (22-29); Chloride 109 mmol/L (96-108); Cholesterol 129 mg/dL (<200); Estimated Glomerular Filt Rate > 60; HDL Cholesterol 37 mg/dL (>40); Potassium 4.4 mmol/L (3.3-5.1); Sodium 138 mmol/L (135-145); Triglycerides 124 mg/dL (<150)
[2024-10-10 12:06] LABS: Prostate Specific Antigen 0.92 ng/mL (<0.05-4.0)
[2024-10-10 12:33] LABS: Ferritin 224 ng/mL (20-250)
== END 2024-10-10 08:36 | disposition home or self-care (01) ==
LOC: HO.10HDL 08:35
PROVIDERS: Visit Provider Urology
DX: C61 Malignant neoplasm of prostate (principal); E11.69 Type 2 diabetes mellitus with other specified complication; N52.1 Erectile dysfunction due to diseases classified elsewhere
CPT/HCPCS: 36415; 80048; 80061; 82728; 83036; 84153; 84403; 86141